=== PATIENT | female | born 1990 | race Caucasian/White ===

== ENCOUNTER 2017-09-26 22:03 | Emergency (ER) | payer MEDICAID ==
[~2017-09-26] VITALS: Ht 167.6 cm; Wt 54.4 kg
[2017-09-26] MEDS ORDERED: ALBUTEROL2.5 MG/3 M INH (22:13)
[2017-09-26] MEDS ORDERED: Albuterol/Ipratropium 3ml neb HHN ONE (22:15)
[2017-09-26 22:44] VITALS: BP 133/91
[2017-09-26] MEDS ORDERED: ALBUTEROL SULF8.5 GM INH (22:55)
[2017-09-26] MEDS ORDERED: PREDNISONE20 MG ORAL (22:55)
[2017-09-26] MEDS ORDERED: Albuterol ud Inhalation HHN ONE (23:00)
[2017-09-26 23:28] VITALS: BP 131/88
[2017-09-26 23:30] VITALS: BP 131/88
--- NOTE | 2017-09-26 23:57 | Emergency Room Report ---
History of Present Illness General Chief Complaint: Asthma Source: Patient Present Illness HPI Patient is a 27-year-old female presented after increased cough and difficulty breathing. Patient gradual onset of symptoms. Patient prior history of asthma. The patient denied productive cough. She reports having increased nasal congestion. Patient reports having increased symptoms for approximately last few days. She denies any fever. She had not been vomiting. She denies any chest discomfort. She denies any leg pain or swelling. The patient previously been prescribed steroids but has not had steroids for the past few months. Allergies: Coded Allergies: No Known Allergies (Unverified , 09/26/17) Patient History Past Medical History: see triage record Last Menstrual Period: last month Reviewed Nursing Documentation: PMH: Agreed; PSxH: Agreed Nursing Documentation-PMH Hx Asthma: Yes Review of Systems All Other Systems: negative except mentioned in HPI Physical Exam Vital Signs Date Time Temp Pulse Resp B/P (MAP) Pulse Ox O2 Delivery O2 Flow Rate FiO2 09/26/17 22:10 98.5 102 24 154/105 90 Room Air 98.4 09/26/17 22:22 2.0 28 Sp02 EP Interpretation: reviewed, normal General Appearance: normal inspection, well appearing, no apparent distress, alert, GCS 15 Head: atraumatic ENT: normal ENT inspection, hearing grossly normal, normal voice Neck: normal inspection, full range of motion, supple, no bony tend Respiratory: normal inspection, no respiratory distress, no retraction, wheezing Cardiovascular #1: regular rate, rhythm, no edema Gastrointestinal: normal inspection, normal bowel sounds, non tender, soft, no guarding, no hernia Genitourinary: no CVA tenderness Musculoskeletal: normal inspection, back normal, normal range of motion Neurologic: normal inspection, alert, oriented x3, responsive, 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 Patient has a benign exam and does not appear to require any further imaging or laboratory testing at this time. Patient is given nebulized albuterol with improvement. Patient was given steroids. Repeat lung exam showed improved breath sounds. test was negative. The patient is advised to follow up with primary care doctor in 1-2 days. Patient is advised to return if any worsening condition or if any changes in status that are concerning. This report is dictated with [employer] automatic mold sander software which may occasionally lead to discrepancies related to use of this software. Labs Test 09/26/17 22:33 Urine HCG, Qualitative Negative (NEGATIVE) Last Vital Signs Date Time Temp Pulse Resp B/P (MAP) Pulse Ox O2 Delivery O2 Flow Rate FiO2 09/26/17 23:30 98.4 68 10 131/88 99 Room Air 2.0 21 98.4 Status: improved Disposition: HOME, SELF-CARE Condition: Stable Scripts Albuterol Sulfate* (ALBUTEROL SULFATE MDI*) 8.5 Gm Hfa.aer.ad 2 PUFF INH Q4H PRN for cough/wheezing, #1 EA 0 Refills Prov: Abdirahman Da Silva MD 09/26/17 Prednisone* (PREDNISONE*) 20 Mg Tablet 40 MG ORAL DAILY, #10 TAB Prov: Abdirahman Da Silva MD 09/26/17 Patient Instructions: Asthma, Adult Abdirahman Da Silva MD Sep 26, 2017 23:57
== END 2017-09-26 23:30 | disposition home or self-care (01) ==
LOC: EMR 22:34
DX: J45.909 Unspecified asthma, uncomplicated (principal)
CPT/HCPCS: 81025; 94640; 94664; 99284; J7512; J7620